=== PATIENT | female | born 1960 | race Hispanic/Latino ===

== ENCOUNTER 2021-05-29 10:10 | Outpatient (CLI) | payer MEDICAID ==
[2021-05-29 10:54] LABS: Basophils # (Auto) 0.1 K/mm3 (0.0-0.1); Basophils % (Auto) 0.6 % (0.0-1.8); Eosinophils # (Auto) 0.2 K/mm3 (0.0-0.4); Eosinophils % (Auto) 1.6 % (0.0-4.3); Hematocrit 42.2 % (30.3-42.9); Hemoglobin 13.9 gm/dl (10.1-14.3); Lymphocytes # (Auto) 2.7 K/mm3 (1.2-5.4); Lymphocytes % (Auto) 28.1 % (13.4-35.0); Mean Corpuscular HGB Conc 33 % (30-34); Mean Corpuscular Volume 94 fl (79-97); Monocytes # (Auto) 0.7 K/mm3 (0.0-0.8); Monocytes % (Auto) 7.3 % (0.0-7.3); Platelet Count 212 K/mm3 (140-440); Red Blood Count 4.47 M/mm3 (3.65-5.03); Red Cell Distribution Width 14.9 % (13.2-15.2)
[2021-05-29 10:58] LABS: Alanine Aminotransferase 20 units/L (7-56); Albumin 4.5 g/dL (3.9-5); Blood Urea Nitrogen 14 mg/dL (7-17); Calcium 9.5 mg/dL (8.4-10.2); Chol/HDL Ratio 2.71 %; HDL Cholesterol 76 mg/dL (40-59); Hemolysis Index 8; LDL Cholesterol,Direct 134 mg/dL (50-130)
[2021-05-29 11:03] LABS: BUN/Creatinine Ratio 20
[2021-05-29 11:12] LABS: ABG Base Excess 1.1 mmol/L (-2.0-3.0); ABG HCO3 25.9 mmol/L (20.0-26.0); ABG Methemoglobin 0.3 % (0.0-1.5); ABG Oxygen Saturation 97.2 % (95.0-99.0); ABG PCO2 41.8 mm Hg; ABG PH 7.41 pH Units (7.350-7.450); ABG PO2 93.8 mm Hg (80.0-90.0)
--- NOTE | 2021-05-29 13:02 | Cat Scan Report ---
CT CHEST WITH CONTRAST INDICATION / CLINICAL INFORMATION: CHRONIC OBSTRUCTIVE PULMONARY DISEASE. TECHNIQUE: Axial CT images were obtained through the chest after 100 cc IV contrast. Sagittal and coronal reform atted images. All CT scans at this location are performed using CT dose reduction for ALARA by means of automated exposure control. COMPARISON: None available. FINDINGS: HEART: No significant abnormality. THORACIC AORTA: Mild atherosclerotic calcification without acute abnormality. MEDIASTINUM and STEFANIE: No significant abnormality. LUNGS: Severe centrilobular emphysematous changes are present throughout both lungs. There is a large area of platelike scarring in the subpleural regions of the right upper lung. Minor linear scarring is noted in the left upper lobe. A 5 mm subpleural nodule is identified in the lateral left lower lob e on image 91. A 5 mm perifissural nodule is noted along the major fissure in the right lung on image 61. No evidence for pulmonary mass or infiltrate. No fibrotic changes. PLEURA: No significant pleural effusion. No pneumothorax. SKELETAL SYSTEM: No significant abnormality. UPPER ABDOMEN: No significant abnormality. ADDITIONAL FINDINGS: None. IMPRESSION: Advanced emphysematous changes. Scarring in both upper lobes, right greater than left. 2 nodules are identified in the right lower lobe and left lower lobe as described. Overall these have a benign appearance. Current recommendations are follow-up CT in 12 months. Signer Name: Shreyas Ortiz Jr, MD Signed: 05/29/2021 12:57 PM Workstation Name: [id number]
[2021-06-02 12:23] LABS: ANA Screen, IFA Positive (Negative)
== END 2021-05-29 10:11 | disposition home or self-care (01) ==
LOC: CT 10:10
PROVIDERS: ATTEND Internal Medicine
DX: J43.9 Emphysema, unspecified (principal); J30.89 Other allergic rhinitis; K21.9 Gastro-esophageal reflux disease without esophagitis; J84.112 Idiopathic pulmonary fibrosis; L93.0 Discoid lupus erythematosus; I70.0 Atherosclerosis of aorta; R91.1 Solitary pulmonary nodule
CPT/HCPCS: 36415; 71260; 80053; 80061; 82803; 84436; 84443; 85025; 86038; 86431; Q9967

== ENCOUNTER 2021-09-17 11:39 | Emergency (ER) | payer MEDICAID ==
[2021-09-17 11:43] VITALS: BP 122/79
[2021-09-17] MEDS ORDERED: methylPREDNISolone Sod Succinate 125 MG/2 ML INJ IM ONE (11:57)
[2021-09-17] MEDS ORDERED: IPRATROPIUM 0.02% NEBU 2.5 ML IH ONE (11:57)
[2021-09-17] MEDS ORDERED: ALBUTEROL 2.5 MG/3 ML NEBU IH ONE (11:57)
--- NOTE | 2021-09-17 12:01 | Emergency Department Report ---
ED Shortness of Breath HPI - General Chief Complaint: Dyspnea/Respdistress Stated Complaint: PCP SENT Time Seen by Provider: 09/17/21 11:50 Source: patient Mode of arrival: Wheelchair Limitations: No Limitations - History of Present Illness Initial Comments: 61-year-old female, history of lupus, COPD (on 2 L O2 via nasal cannula), presents to ED with difficulty breathing. Patient was sent to ED by her vine pruner, Dr. Melchor, for evaluation. Patient states she was seen by vine pruner last week and she was placed on azithromycin x4 days and and steroids for wheezing. Patient states 2 days ago, someone used a cleaning solution for that aggravated her COPD. Patient states since then she has been more out of breath and requiring nebulizer treatments at home. She called her vine pruner today who advised her to come to the emergency room. Patient denies any fever. Only reports a slight cough. Patient reports she has been fully vaccinated against COVID-19. MD Complaint: shortness of breath -: days(s) (2) Severity: moderate Consistency: intermittent Improves With: bronchodilators Worsens With: nothing, exertion Known History Of: COPD Context: allergen exposure Associated Symptoms: cough Treatments Prior to Arrival: bronchodilator - Related Data Home Oxygen Therapy: Yes Home Oxygen Amount: 2 Liters Previous Rx's Medication Instructions Recorded Last Taken Type levoFLOXacin [Levaquin] 750 mg PO QDAY 5 Days #5 tablet 09/17/21 Unknown Rx Allergies Allergy/AdvReac Type Severity Reaction Status Date / Time codeine Allergy Severe ITCHING, Verified 09/17/21 11:42 UNABLE TO BREATHE ED Review of Systems ROS: Stated complaint: PCP SENT Other details as noted in HPI Comment: All other systems reviewed and negative Constitutional: denies: fever Respiratory: cough, shortness of breath, wheezing Cardiovascular: denies: chest pain ED Past Medical Hx - Medications Home Medications: Home Medications Medication Instructions Recorded Confirmed Last Taken Type levoFLOXacin [Levaquin] 750 mg PO QDAY 5 Days #5 tablet 09/17/21 Unknown Rx ED Physical Exam - General Limitations: No Limitations General appearance: alert - Head Head exam: Present: atraumatic, normocephalic - Eye Eye exam: Present: normal appearance, EOMI - ENT ENT exam: Present: mucous membranes moist - Neck Neck exam: Present: normal inspection - Respiratory Respiratory exam: Present: wheezes, other (Tachypnea) - Cardiovascular Cardiovascular Exam: Present: tachycardia - GI/Abdominal GI/Abdominal exam: Present: soft. Absent: distended, tenderness - Extremities Exam Extremities exam: Present: normal inspection - Neurological Exam Neurological exam: Present: alert, oriented X3 - Psychiatric Psychiatric exam: Present: normal affect, normal mood - Skin Skin exam: Present: warm, dry, intact, normal color ED Course Vital Signs 09/17/21 09/17/21 11:40 13:05 Temperature 98 F Pulse Rate 115 H 104 H Respiratory 32 H 16 Rate Blood Pressure 122/79 [Left] O2 Sat by Pulse 93 99 Oximetry ED Medical Decision Making - Radiology Data Radiology results: report reviewed, image reviewed - Medical Decision Making 61-year-old female presents to ED with COPD exacerbation. Chest x-ray shows possible pneumonia. Patient was given/Atrovent nebulizer treatment here in the ED. Respiratory status is much improved, wheezing has resolved. She is not require admission at this time. Patient will be discharged with prescription for Levaquin. Outpatient follow-up advised, return precautions given. - Differential Diagnosis COPD, pneumonia Critical care attestation.: If time is entered above; I have spent that time in minutes in the direct care of this critically ill patient, excluding procedure time. ED Disposition Clinical Impression: Acute exacerbation of chronic obstructive pulmonary disease, Pneumonia Disposition: 01 HOME / SELF CARE / HOMELESS Is pt being admited?: No Condition: Stable Instructions: Chronic Obstructive Pulmonary Disease Exacerbation, [id number], Community-Acquired Pneumonia, Adult, Chronic Obstructive Pulmonary Disease (ED), Bacterial Pneumonia (ED) Prescriptions: levoFLOXacin [Levaquin] 750 mg PO QDAY 5 Days #5 tablet Referrals: NGUYEN GODINEZ MD [Primary Care Provider] - 3-5 Days Time of Disposition: 13:55
--- NOTE | 2021-09-17 12:33 | XRay Report ---
XR chest routine 2V INDICATION / CLINICAL INFORMATION: SOB. COMPARISON: 05/11/2016. CT from 05/29/2021. FINDINGS: SUPPORT DEVICES: None. HEART /PULMONARY VASCULATURE: No significant abnormality. LUNGS / PLEURA: There are findings of severe emphysema with chronic parenchymal scarring within bilat eral mid lungs. There are superimposed mild increased reticular and airspace opacities in the right greater than left lung bases. ADDITIONAL FINDINGS: No significant additional findings. IMPRESSION: Right greater than left bibasilar pulmonary opacities, suspicious for pneumonia/COPD exacerbation. Signer Name: Clifton Shah MD Signed: 09/17/2021 12:28 PM Workstation Name: [id number]
== END 2021-09-17 14:20 | disposition home or self-care (01) ==
LOC: ED 11:39
DX: J44.9 Chronic obstructive pulmonary disease, unspecified (principal); J18.9 Pneumonia, unspecified organism; Z88.5 Allergy status to narcotic agent; Z79.899 Other long term (current) drug therapy
CPT/HCPCS: 71046; 94640; 96372; 99283; J2930